=== PATIENT | female | born 1985 | race Caucasian/White ===

== ENCOUNTER 2018-01-08 02:56 | Emergency (ER) | payer SELFPAY ==
[2018-01-08 03:06] VITALS: BP 151/99; PULSE 74; RESP 20; TEMP 36.4; O2SAT 99; BMI 29.2
--- NOTE | 2018-01-08 03:12 | CT_ITS ---
CT head/brain wo con COMPARISON: None HISTORY: Headaches and numbness in fingertips TECHNIQUE: Multiaxial scans obtained from base skull to the vertex and were performed without IV contrast. FINDINGS: The base of skull appears normal, the mastoids are clear. There are prominent inflammatory changes of the ethmoid sinuses with minimal mucoperiosteal thickening in the visualized portions of the maxillary sinuses. Frontal sinuses and sphenoid sinus are clear. Ventricular system is normal. There is no ischemic infarct or bleed and there are no extra-axial fluid collections. Bony calvarium appears intact. IMPRESSION: Prominent ethmoid sinusitis likely acute otherwise essentially negative noncontrast CT scan of brain, I agree the [facility] report
[2018-01-08 03:23] LABS: Microscopic, Urine URINE MICROSCOPIC (MICROSCOPIC)
[2018-01-08 03:24] LABS: Basophils # 0.1 K/mm3 (0-0.2); Basophils % 0.8 % (0.1-2.0); Eosinophils # 0.7 K/mm3 (0.0-0.4); Eosinophils % 9.8 % (0.1-12.0); Hematocrit 46.1 % (37.0-47.0); Hemoglobin 14.6 g/dL (12.2-16.2); Lymphocytes # 2.5 K/mm3 (0.7-4.5); Mean Corpuscular HGB Conc 31.8 g/dL (31.8-35.4); Mean Corpuscular Hemoglobin 31.2 pg (27.0-31.2); Mean Corpuscular Volume 98.2 fl (81-99); Mean Platelet Volume 7.6 fl (7.4-10.4); Monocytes # 0.4 K/mm3 (0.1-1.0); Monocytes % 5.1 % (1.7-9.3); Neutrophils # 3.7 K/mm3 (1.8-7.8); Neutrophils % 50.3 % (37.0-80.0); Platelet Count 327 K/mm3 (142-424); Red Blood Count 4.69 M/mm3 (4.20-5.40); Red Cell Distribution Width 15.7 % (11.5-17.5); White Blood Count 7.3 K/mm3 (4.8-10.8)
[2018-01-08 03:25] LABS: Appearance,Urine CLEAR (Clear); Bilirubin,Urine Negative (Negative); Blood, Urine Negative (Negative); Color,Urine YELLOW (Yellow); Glucose,Urine (UA) Negative (Negative); Ketones,Urine TRACE (Negative); Leukocyte Esterase,Urine Negative (Negative); Nitrate,Urine Negative (Negative); Protein,Urine Negative (Negative); Urobilinogen,Urine 0.2 EU/dl (0.2)
[2018-01-08 03:27] LABS: Urine Pregnancy, HCG Qual. Negative (Negative)
[2018-01-08 03:30] LABS: Amorphous Sediment,Urine Trace /lpf; WBC,Urine Occasional #/hpf (0-3)
[2018-01-08 03:38] LABS: Alanine Aminotransferase 26 U/L (12-78); Albumin Level 3.2 gm/dL (3.4-5.0); Albumin/Globulin Ratio 0.8 (1.1-1.8); Alkaline Phosphatase 61 U/L (46-116); Anion Gap 12.7 mEq/L (5-15); Aspartate Amino Transferase 20 U/L (15-37); Bilirubin,Total 0.1 mg/dL (0.2-1.0); Blood Urea Nitrogen 4 mg/dL (7-18); Calcium 8.3 mg/dL (8.5-10.1); Carbon Dioxide 25 mmol/L (21.0-32.0); Chloride 108 mmol/L (98-107); Creatinine Clearance Estimated 164 mL/min (0-300); Creatinine,Serum 0.59 mg/dL (0.55-1.02); Estimated Glomerular Filt Rate 117 ml/min (>60); GFR (African American) 141 ML/MIN (>60); Globulin 3.8 gm/dl (1.3-3.2); Glucose 87 mg/dL (74-106); Potassium 3.7 mmoL/L (3.5-5.1); Sodium 142 mmol/L (136-145)
--- NOTE | 2018-01-08 04:04 | HMH.EDHA ---
ED Disposition Clinical Impression: Migraine Qualifiers: Migraine type: unspecified Status migrainosus presence: without status migrainosus Intractability: not intractable Qualified Code(s): G43.909 - Migraine, unspecified, not intractable, without status migrainosus Disposition: Home, Self-Care Condition on Discharge: Good Instructions: DI for Migraine Additional Instructions: Please choose one of the local providers, schedule a follow-up appointment with one of them, within the next 2-3 days, for a thorough medical evaluation. Please continue current medications (including the Coumadin) until seen and evaluated by your new PCP. Obtain copies of your medical records from [facility], [place] as well as [place], [place] pertaining to your current medical conditions, to include MRIs, CTs, ultrasounds, and doctors' notes. You were provided with a copy of local primary care providers. Time of Disposition: 05:01 - Critical Care Critical Care Time: No Attestation: On 01/08/18, the high probability of a clinically significant, sudden or life threatening deterioration of the following system(s) required my full and direct attention, intervention and personal management. The time I documented below is in addition to time spent performing reported procedures but includes the following listed in this critical care notation. Medical Decision Making - Medical Records Medical records reviewed: Yes: I reviewed the patient's medical records. - Praveen Inquiry Pt receiving controlled substance: No Vital Signs: 01/08/18 03:06 01/08/18 04:42 01/08/18 05:10 Temperature 97.6 F 98.4 F 98.0 F Temperature Source Oral Oral Oral Pulse Rate 65 Pulse Rate [Right Radial] 74 68 Respiratory Rate 20 18 20 Blood Pressure 141/70 Blood Pressure [Right Arm] 151/99 129/68 Blood Pressure Mean [Right Arm] 116 88 Blood Pressure Source [Right Arm] Manual Cuff/ Auscultation Blood Pressure Position [Right Arm] Sitting Supine 02 Sat by Pulse Oximetry 99 97 Oxygen Delivery Method Room Air Room Air - Lab Data Lab Results 01/08/18 03:15: Urine Color Yellow, Urine Appearance Clear, Urine pH 6.0, Ur Specific [place] 1.020, Urine Protein Negative, Urine Glucose (UA) Negative, Urine Ketones Trace, Urine Blood Negative, Urine Nitrate Negative, Urine Bilirubin Negative, Urine Urobilinogen 0.2, Ur Leukocyte Esterase Negative, Urine WBC Occasional, Ur Squamous Epith Cells 3-5, Amorphous Sediment Trace 01/08/18 03:15: WBC 7.3, RBC 4.69, Hgb 14.6, Hct 46.1, MCV 98.2, MCH 31.2, MCHC 31.8, RDW 15.7, Plt Count 327, MPV 7.6, Neut % (Auto) 50.3, Lymph % (Auto) 34.0, [place] % (Auto) 5.1, Eos % (Auto) 9.8, Baso % (Auto) 0.8, Neut # (Auto) 3.7, Lymph # (Auto) 2.5, [place] # (Auto) 0.4, Eos # (Auto) 0.7 H, Baso # (Auto) 0.1 01/08/18 03:15: Urine HCG, Qual Negative 01/08/18 03:15: Sodium 142, Potassium 3.7, Chloride 108 H, Carbon Dioxide 25, Anion Gap 12.7, BUN 4 L, Creatinine 0.59, Estimated Creat Clear 164, Estimated GFR 117, Est GFR ( Amer) 141, Glucose 87, Calcium 8.3 L, Total Bilirubin 0.1 L, AST 20, ALT 26, Alkaline Phosphatase 61, Total Protein 7.0, Albumin 3.2 L, Globulin 3.8 H, Albumin/Globulin Ratio 0.8 L 01/08/18 03:15: PT 13.8 H, INR 1.27 H, APTT 28.6 01/08/18 03:15: Total Creatine Kinase 226 H, CK-MB (CK-2) 2.2, CK-MB (CK-2) Rel Index 1.0, Troponin I < 0.02 Result diagrams: 01/08/18 03:15 01/08/18 03:15 Orders (Tests/Meds): ED MEDICATIONS Discontinued Medications Generic Name Dose Route Start Last Admin Trade Name Freq PRN Reason Stop Dose Admin Sodium Chloride 1,000 mls @ 999 mls/hr 01/08/18 03:15 01/08/18 03:14 Sod Chlor 0.9% 1000ml Bag IV 01/08/18 04:15 999 mls/hr .Q1H1M HEATHER Administration Ketorolac Tromethamine 30 mg 01/08/18 03:12 01/08/18 03:14 Toradol 30mg/Ml Vial IV 01/08/18 03:13 30 mg ONCE ONE Administration Morphine Sulfate 2 mg 01/08/18 04:30 01/08/18 04:44 Morphine 2mg/2ml Syringe IV 01/08/18 04:31 2
[2018-01-08 04:33] LABS: Activated Partial Thrombo Time 28.6 seconds (23.6-34.0); INR 1.27 (0.9-1.1); Prothrombin Time 13.8 seconds (9.4-11.8)
[2018-01-08 04:42] VITALS: BP 129/68; PULSE 68; RESP 18; TEMP 36.9; O2SAT 97
[2018-01-08 04:47] LABS: Creatine Kinase 226 U/L (26-192); Creatine Kinase MB 2.2 mg/ml (0.0-3.6); Troponin I < 0.02 ng/ml (0.00-0.06)
[2018-01-08 05:10] VITALS: BP 141/70; PULSE 65; RESP 20; TEMP 36.7; O2SAT 98
== END 2018-01-08 05:10 | disposition home or self-care (01) ==
PROVIDERS: Emergency Provider Emergency Medicine
DX: G43.909 Migraine, unspecified, not intractable, without status migrainosus (principal); F17.210 Nicotine dependence, cigarettes, uncomplicated
CPT/HCPCS: 70450; 80053; 81001; 81025; 82550; 82553; 84484; 85025; 85610; 85730; 93005; 96365; 96375; 96376; 99283; J2405